=== PATIENT | female | born 1970 | race Caucasian/White ===

== ENCOUNTER 2018-06-24 19:34 | Inpatient (IN) | payer OTHER ==
[2018-06-24] MEDS ORDERED: ONDANSETRON 4 MG/2 ML VIAL ONE (20:00)
[2018-06-24] MEDS ORDERED: HYDROmorphONE/DILAUDID 1 MG/ML INJ ONE (20:00)
[2018-06-24] MEDS ORDERED: HYDROmorphONE/DILAUDID 1 MG/ML INJ IVP ONE ×3 (20:05→21:35)
[2018-06-24] MEDS ORDERED: ONDANSETRON 4 MG/2 ML VIAL IVP ONE (20:05)
[2018-06-24] MEDS ORDERED: NS 1,000 ML IV ONE ×2 (20:11→21:45)
--- NOTE | 2018-06-24 20:15 | EDPHY ---
H & P Stated Complaint: Epigastric pain-cramping Time Seen by Provider: 06/24/18 19:38 HPI/ROS: CHIEF COMPLAINT: Abdominal pain History by patient HISTORY OF PRESENT ILLNESS: 47-year-old woman with a history of gastric bypass 6 months ago presents complaining of acute onset of severe crampy upper epigastric pain after eating fondue dinner at a restaurant. Patient's symptoms began soon after finishing her meal and she vomited once spread outside the restaurant. She still feels nauseated and complains of ongoing severe pain. She has had a few similar episodes since her surgery but never this severe and never needing to seek medical attention as a abated on their own. She had several bowel movements today but had not had a bowel movement in 3 days prior to that although patient says this is typical for her. She has a history of pancreatitis which was related to hydrochlorothiazide this feels somewhat different, except for shooting pain that goes into her back. She has a history of hysterectomy but no other prior abdominal surgeries. She did not have any alcohol tonight. She denies regular alcohol use. She does not smoke. REVIEW OF SYSTEMS: As in HPI, and all other systems reviewed and are negative Source: Patient - Personal History LMP (Females 10-55): Hysterectomy Current Tetanus/Diphtheria Vaccine: Unsure Current Tetanus Diphtheria and Acellular Pertussis (TDAP): Unsure - Medical/Surgical History Hx Asthma: No Hx Chronic Respiratory Disease: No Hx Diabetes: No Hx Cardiac Disease: No Hx Renal Disease: No Hx Cirrhosis: No Hx Alcoholism: No Hx HIV/AIDS: No Hx Splenectomy or Spleen Trauma: No Other PMH: Gastric bypass 2018, hysterectomy, pancreatitis due to hydrochlorthiazide, HTN, cramps, - Social History Smoking Status: Never smoked - Physical Exam Exam: General Appearance: Alert, obese, uncomfortable hyperventilating. Eyes: Pupils equal and round, extraocular movements intact, no pallor or injection. Mouth: Mucous membranes moist. Pharynx clear Respiratory: Normal, effort, lungs are clear to auscultation. No wheezes, rales or rhonchi. Cardiovascular: Regular rate and rhythm. S1, S2, no murmurs, gallops or rubs appreciated Gastrointestinal: bowel sounds present, Abdomen is soft and nondistended, mildly diffusely tender in the epigastrium, no Benedict's, no McBurney's point tenderness, no masses Back: No CVA tenderness, no bony tenderness Neurological: Awake, alert and oriented x 3, no pronator drift, normal gait, no pronator drift Skin: Warm and dry, no rashes. Musculoskeletal: No deformities or tenderness. Extremities: full range of motion, no edema Psychiatric: Patient has normal affect, there is no agitation. Constitutional: Initial Vital Signs Temperature (C) 36.9 C 06/24/18 19:39 Heart Rate 94 06/24/18 19:39 Respiratory Rate 24 H 06/24/18 19:39 Blood Pressure 142/97 H 06/24/18 19:39 O2 Sat (%) 96 06/24/18 19:39 O2 Delivery Mode Room Air Allergies/Adverse Reactions: hydrochlorothiazide Allergy (Intermediate, Verified 06/24/18 19:39) Other-Enter Comments bacitracin Allergy (Mild, Verified 06/24/18 19:39) Rash Home Medications: Medication Instructions Recorded Alprazolam 06/24/18 Amlodipine Besylate 06/24/18 Calcium 06/24/18 Cyclobenzaprine 06/24/18 Estradiol 06/24/18 Magnesium 06/24/18 Montelukast Sodium 06/24/18 Sertraline HCl 06/24/18 traZODone 06/24/18 Medical Decision Making - Diagnostics Imaging Results: Imaging Impressions Abdomen CT 06/24/18 20:12 Impression: 1. Status post Helena-en-Y gastric bypass, with no abnormal distention of the duodenal or jejunal limbs. 2. Bilateral nonobstructive nephrolithiasis. 3. There is no ascites, focal intra-abdominal fluid collection, mechanical obstruction, or free air. There is a normal appearance of the appendix. 4. Status post hysterectomy and bilateral tubal ligations. Findings were discussed with Eunice Abraham MD at 21:13, on 06/24/2018. ED Course/Re-evaluation: 47-year-old woman with history of gastric bypass surgery, presents with acute onset of severe epigastric pain. Patient is given IV Zofran and Dilaudid with some improvement. Labs were notable for elevated LFTs and elevated white blood cell count and low platelets. Patient was given IV fluids. After the 1st dose of Dilaudid her blood pressure was noted to drop slightly. Given the patient's gastric bypass surgery I was concerned about complications related to this and her recent big meal and therefore a CT abdomen pelvis was obtained. And re- evaluation after CT scan the patient's blood pressure had improved and I suspect the dip was related to the Dilaudid she was given. Her pain had improved as well. CT scan showed nothing acute. Lipase came back elevated consistent with acute pancreatitis which also with patient's clinical picture. On re-evaluation the patient was complaining of recurrence of her pain was given another dose of Dilaudid. I discussed the case with Dr. Llamas, hospitalist veterans contact representative who agrees to admit the patient for further evaluation and treatment. - Data Points Laboratory Results: Laboratory Results 06/24/18 19:45 06/24/18 06/24/18 06/24/18 19:53 19:45 19:45 Plt Count REJ POC Sodium 143 mEq/L mEq/L (135-145) POC Potassium 3.9 mEq/L mEq/L (3.3-5.0) POC Chloride 106.0 mEq/L mEq/L (97-110) POC Total CO2 23 mEq/L mEq/L (22-31) POC BUN 20 mg/dL mg/dL (7-23) POC Creatinine 1.0 mg/dL mg/dL (0.6-1.0) POC Glucose 85 mg/dL mg/dL (70-100) POC Calcium 10.3 mg/dL mg/dL (8.5-10.4) POC Total Bilirubin 0.5 mg/dL mg/dL (0.1-1.4) POC AST 139 IU/L H IU/L (14-46) POC ALT 68 IU/L H IU/L (9-52) POC Alk Phosphatase 88 IU/L IU/L (38-126) POC Total Protein 7.4 g/dL g/dL (6.3-8.2) POC Albumin 3.7 g/dL g/dL (3.5-5.0) Lipase 1161 IU/L H IU/L (23-300) Medications Given: Discontinued Medications Hydromorphone HCl (Dilaudid) 0.5 mg IVP EDNOW ONE Stop: 06/24/18 20:06 Last Admin: 06/24/18 20:05 Dose: 0.5 mg Hydromorphone HCl (Dilaudid) 0.5 mg IVP EDNOW ONE Stop: 06/24/18 20:19 Last Admin: 06/24/18 20:18 Dose: 0.5 mg Sodium Chloride (Ns) 1,000 mls @ 0 mls/hr IV EDNOW ONE; Wide Open PRN Reason: Protocol Stop: 06/24/18 20:12 Last Admin: 06/24/18 20:19 Dose: 1,000 mls Ondansetron HCl (Zofran) 4 mg IVP EDNOW ONE Stop: 06/24/18 20:06 Last Admin: 06/24/18 20:06 Dose: 4 mg Point of Care Test Results: CBC CBC Collection Date 06/24/18 CBC Collection Time 19:45 WBC 9.55 RBC 4.36 HGB 13.9 HCT 39.7 PLT 88 Neut # 5.72 Neut 60 LYMPH # 3.05 LYMPH 31.9 MCV 91.1 Chemistry 06/24/18 19:53 POC Sodium 143 mEq/L mEq/L (135-145) POC Potassium 3.9 mEq/L mEq/L (3.3-5.0) POC Chloride 106.0 mEq/L mEq/L (97-110) POC Total CO2 23 mEq/L mEq/L (22-31) POC BUN 20 mg/dL mg/dL (7-23) POC Creatinine 1.0 mg/dL mg/dL (0.6-1.0) POC Glucose 85 mg/dL mg/dL (70-100) POC Calcium 10.3 mg/dL mg/dL (8.5-10.4) POC Total Bilirubin 0.5 mg/dL mg/dL (0.1-1.4) POC AST 139 IU/L H IU/L (14-46) POC ALT 68 IU/L H IU/L (9-52) POC Alk Phosphatase 88 IU/L IU/L (38-126) POC Total Protein 7.4 g/dL g/dL (6.3-8.2) POC Albumin 3.7 g/dL g/dL (3.5-5.0) Departure - Departure Disposition: [facility] Inpatient Acute Clinical Impression: Thrombocytopenia Acute pancreatitis Qualifiers: Pancreatitis type: unspecified pancreatitis type Acute pancreatitis complication: no infection or necrosis Qualified Code(s): K85.90 - Acute pancreatitis without necrosis or infection, unspecified Condition: Fair Referrals: PAULIE NELSON [Other] - As per Instructions
[2018-06-24] MEDS ORDERED: IOPAMIDOL (ISOVUE-300) 100 ML BTL ONE (20:25)
[2018-06-24] MEDS ORDERED: ONDANSETRON 4 MG/2 ML VIAL IVP PRN (21:56)
[2018-06-24] MEDS ORDERED: LORazepam 2 MG/ML INJ IVP PRN (23:26)
--- NOTE | 2018-06-25 07:45 | GHP ---
[f rep st] HISTORY AND PHYSICAL DATE OF ADMISSION: 06/24/2018 PRIMARY CARE PHYSICIAN: Caim Pineda. SOURCE: Patient provides history, appears reliable. EMR was reviewed. Case discussed with mikal pride hospitalist. CHIEF COMPLAINT: Abdominal epigastric pain, nausea, vomiting. HISTORY OF PRESENT ILLNESS: This is very pleasant 47-year-old female with past medical history signi ficant for obesity, status post gastric bypass in 2018; HTN; pancreatitis 3 years ago thought seconda ry to HCTZ; anxiety; insomnia; who presents to the emergency department at [facility] today with complaints of sudden-onset epigastric pain following dinner this evening. Patient reports the pain is sharp, st abbing, radiates to her back. She notes that she was at [facility] with her significant other maria rjohnathan pride to enjoy a meal. It was slightly fattier than her normal. She reports that she just had 12 bites of food before she began to feel ill. Additionally, patient also reports that she did have a cocktai l prior to eating. She does not drink on a daily basis. Shortly thereafter, she began to develop ep igastric pain with vomiting and persistent nausea. Patient denies any hematemesis. No diarrhea. Sh e denies any fevers or chills, although she states that she has been going through perimenopause and has been having intermittent flushing. Denies any cough, shortness of breath, rhinorrhea, or other i nfectious symptoms. Patient also reports that she recently was started on an estrogen patch not quit e 2 weeks ago and switches them out weekly. REVIEW OF SYSTEMS: Ten systems reviewed, negative except as noted above. ALLERGIES: HCTZ, bacitracin, ABDIAS inhibitors, fluticasone. HOME MEDICATIONS: Med conciliation is pending, but as available in EMR: Trazodone, sertraline, alka elukast, magnesium, estradiol, cyclobenzaprine, calcium, amlodipine, and alprazolam. PAST MEDICAL HISTORY: Significant for obesity, status post bypass; HTN; pancreatitis reported second vikash to HCTZ 3 years ago; anxiety; insomnia. PAST SURGICAL HISTORY: Significant for hysterectomy with single oophorectomy, gastric bypass. FAMILY HISTORY: Mother with CHF. SOCIAL HISTORY: Patient denies any tobacco or drug use. She does drink occasional alcohol, nothing on a daily basis, but maybe 1-2 drinks per week. CODE STATUS: Full. PHYSICAL EXAMINATION: VITAL SIGNS: Upon arrival to the ED: Blood pressure is 142/97, heart rate is 94, respiratory rate 24, O2 sat is 96% on room air, temperature of 36.9. Vitals available upon inte rview: Blood pressure is 122/86, heart rate is 92, respiratory rate 16, O2 sat 94% on room air, with a temperature of 36.9. GENERAL: Patient without any acute distress. She is lying quietly in bed. Her significant other arrives to bedside during interview. She does appear fatigued and uncomfortab le, lies quite still. HEAD: Normocephalic, atraumatic. EYES: Extraocular muscles grossly intact. Pupils equal, round, slightly decreased reactivity to light bilaterally, but symmetric. No scleral icterus or conjunctival injection. ENT: Mucous membranes appear slightly dry. No oropharyngeal akiko thema or exudates. Dentition intact. No nasal discharge. NECK: Supple. Trachea midline. CV: Re gular rate and rhythm. No murmurs, rubs, or gallops appreciated. Slightly distant heart sounds. RE SPIRATORY: Unlabored breathing. Lungs clear to auscultation bilaterally. Slightly diminished at th e bases with decreased inspiratory effort. No wheezes, rales, or rhonchi appreciated. Unlabored braeden athing. ABDOMEN: Obese abdomen. : No suprapubic tenderness to palpation. No Long catheter in place. MUSCULOSKELETAL: Strength grossly normal. Patient does move all extremities. NEURO: Gross ly nonfocal. No facial drooping. PSYCH: Affect is appropriate. Patient is pleasant and cooperativ e, although she does not feel well. She smiles intermittently. She is in fairly good spirits, but n otes that she is slightly disappointed that she has had recurrence of her pancreatitis. Thought proc ess, content, and questions are otherwise appropriate. LABORATORY STUDIES: Platelet count 205. Point of care from the ED: Sodium is 143, potassium 3.9, c hloride is 106, CO2 is 23, BUN is 20, chloride 106, CO2 is 23, creatinine 1.0, calcium is 10.3, total protein is 9.4, albumin is 3.7, ALT 68, AST is 139, alk phos is 88, total bili 0.5. Lipase is 1161. CT abdomen and pelvis report showing status post Helena-en-Y gastric bypass. No abnormal distention, d uodenojejunal limbs. Bilateral nonobstructive nephrolithiasis. No ascites, focal intraabdominal flu id collection, mechanical obstruction, or free air. Normal-appearing appendix. Status post hysterec laverne, bilateral tubal ligations. Pancreas appears normal. No calcified gallstones, wall thickening, or pericholecystic fluid. Biliary ducts note some periportal edema from IV hydration. Common bile duct is normal in size, tapers in the ampulla. Pancreatic duct does not appear dilated. ASSESSMENT AND PLAN: Pleasant 47-year-old female with history of obesity, status post bypass; hypert ension; pancreatitis 3 years ago reported due to hydrochlorothiazide; anxiety; insomnia; who presents to the emergency department with epigastric abdominal pain. 1. Pancreatitis. Etiology is not clear. Patient without any gallstones; however, she did report rosales ving alcohol this evening, also increased fatty diet load with history of gastric bypass. Patient al so reports that she did start estrogen therapy with a patch, which is changed weekly, which is new. Review shows that there is less than a 3% chance that it could cause pancreatitis, so we will need to discuss this further with the patient in the morning to see if she would be willing to forego her es trogen replacement. We will also check a triglyceride. She has been made nothing by mouth except fo r occasional ice chips. We will trend her lipase. Continue with intravenous fluids and pain control . Once her symptoms improve, we will plan to try to advance diet slowly. I did discuss with the pat ient negative CT findings for gallstones or evidence of obstruction. We will also encourage her to d iscontinue use of alcohol to see if this would minimize any recurrence and also would follow up with her regarding the estrogen supplementation. 2. Abdominal pain. Patient received dose of Ativan since arrival to the floor, which she reports rosales s helped significantly. This will be available as needed, as well as some low-dose Dilaudid, until p atient can tolerate oral intake. 3. Transaminitis. Unclear at this time if it is related to patient's alcohol versus fatty liver. W e will trend liver function tests. Patient does have a 1:2 ratio in her ALT/AST, but again this is j ust above high normal values. We will trend in the morning. 4. Chronic medical issues. 5. Benign essential hypertension. Blood pressures at this time are well controlled. Patient normal ly is taking amlodipine. Resume once medication reconciliation is available. 6. Anxiety, depression. Continue patient's trazodone, sertraline, and alprazolam when medication re conciliation is completed and diet is advanced. 7. Fluid, electrolyte, nutrition. Intravenous fluids overnight. Patient will be nothing by mouth u ntil reassessed in the morning, and if her pain is resolved and her lipase continues to downtrend, co nsider advancing diet slowly as per day provider. 8. Prophylaxis. Sequential compression devices, Lovenox. 9. Code status. Full. 10. Disposition. Patient admitted to inpatient status on the [facility] floor for continued management of her pancreatitis. /[id number]/MODL
[2018-06-25] MEDS: HYDROmorphONE/DILAUDID 1 MG/ML INJ IVP PRN ×3 (08:50→16:03)
[2018-06-25] MEDS: ENOXAPARIN 40 MG/0.4 ML SYR SC SCH (08:50)
[2018-06-25] MEDS: NS 1,000 ML IV SCH ×3 (08:50→20:44)
[2018-06-25] MEDS ORDERED: LOPERAMIDE HCL 2 MG CAP PO PRN (09:15)
[2018-06-25] MEDS ORDERED: ALPRAZolam 0.25 MG TAB PO PRN (09:15)
--- NOTE | 2018-06-25 09:34 | PDMN ---
Medical Necessity Medical necessity: MCG M250 pancreatitis :-2 days: 47yo F presents with severe abd pain N/V, req pt to be NPO Lipase 1161, anticipate > 2 MN ongoing med nec care- further monitoring, eval and tx
[2018-06-25] MEDS: SERTRALINE HCL 100 MG TAB PO SCH (09:41)
--- NOTE | 2018-06-25 12:18 | ASMTCMCOM ---
CM Note CM Note Notes: Pt has been admitted with pancreatitis. She has a hx of anxiety and a prior episode of pancreatitis. Anticipate d/c with no CM needs however will continue to follow for any change in needs. D/C plan: anticipate home independent Date Signed: 06/25/2018 12:18 PM Electronically Signed By:SELVIN Murry
[2018-06-25] MEDS: MONTELUKAST SODIUM 10 MG TAB PO SCH (20:42)
[2018-06-25] MEDS: MELATONIN 3 MG TAB PO SCH (20:42)
[2018-06-25] MEDS: traZODone 50 MG TAB PO SCH (20:43)
[2018-06-25] MEDS: ACETAMINOPHEN 325 MG TAB PO PRN (20:44)
--- NOTE | 2018-06-25 23:52 | HOSPPROG ---
Hospitalist Progress Note Assessment/Plan: 1. Acute pancreatitis with transaminitis, unclear cause (maybe from new estrogen med) -lipase lower today and pain improved -NPO with IVF, but she is OK with trial clears 2. HTN -home meds 3. Obesity, s/p Helena en Y bypass surgery last yr -has lost > 100 lbs so far! 4. depression/anxiety -home meds DISPO- 1-2 more mdnts depending upon pain/PO intake PCP Dr Angeli Pineda in [place] D[place] prophy-lovenox FULL code Subjective: Says pain better. Had 'uncontrollable' diarrhea, better with immodium now. No V/CP/SOB. Objective: Vital Signs Temp Pulse Resp BP Pulse Ox 98.3 F 56 L 16 99/61 L 94 06/25/18 23:15 06/25/18 23:15 06/25/18 23:15 06/25/18 23:15 06/25/18 23:15 Laboratory Results 06/25/18 04:28 06/24/18 06/25/18 06/26/18 11:59 11:59 11:59 Intake Total 1999 2923 Balance 1999 2923 - Time Spent With Patient Time Spent with Patient: greater than 35 minutes (total floor time) Time Spent with Patient: Greater than 35 minutes spent on this patients care, greater than 50% of time spent counseling, educating, and coordinating care regarding the above mentioned plan. - Physical Exam Constitutional: no apparent distress, obese Eyes: anicteric sclera Ears, Nose, Mouth, Throat: moist mucous membranes, hearing normal Cardiovascular: regular rate and rhythym, No edema Respiratory: no respiratory distress, no rales or rhonchi, clear to auscultation Gastrointestinal: normoactive bowel sounds, tenderness (mild throughout), No guarding, No rebound, No distension Skin: warm, No rash Neurologic: other (grossly non focal) Psychiatric: interacting appropriately, not anxious, not encephalopathic ICD10 Worksheet Patient Problems: Problems Problem Status Onset Acute pancreatitis Acute Thrombocytopenia Acute
[2018-06-26] MEDS: ACETAMINOPHEN 325 MG TAB PO PRN ×2 (04:51→16:42)
[2018-06-26] MEDS: NS 1,000 ML IV SCH (04:52)
[2018-06-26 05:47] LABS: PLATELET COUNT 136 10^3/uL (150-400)
[2018-06-26] MEDS ORDERED: PROTOCOL POTASSIUM 1 DOSE MISC PRN (07:58)
[2018-06-26] MEDS ORDERED: PROTOCOL MAGNESIUM 1 DOSE IV PRN (07:58)
[2018-06-26] MEDS ORDERED: POTASSIUM CL 10 MEQ TAB PO ONE ×2 (08:36→19:43)
[2018-06-26] MEDS: oxyCODONE IR 5 MG TAB PO PRN (09:12)
[2018-06-26] MEDS: SERTRALINE HCL 100 MG TAB PO SCH (09:13)
[2018-06-26] MEDS: ENOXAPARIN 40 MG/0.4 ML SYR SC SCH (09:13)
[2018-06-26] MEDS ORDERED: MAGNESIUM SULF 1 GM/DEXTROSE 100 ML IV ONE (09:19)
--- NOTE | 2018-06-26 15:31 | HOSPPROG ---
Hospitalist Progress Note Assessment/Plan: 47 yo F w abd pain in setting of post prandial vomiting ?pancreatitis: maybe elevated lipase could be from vomiting tolerating clears w/out increased pain, not hyperdynamic continue clears ?GB pathology: + pappas's sign, h/o gastric bypass and pain post fatty meal HIDA scan HTN home meds Obesity, s/p Hel[place] en Y bypass surgery last yr has lost > 100 lbs so far! depression/anxiety home meds DISPO- 1-2 more mdnts depending upon pain/PO intake PCP Dr Angeli Pineda in [place] prophy-lovenox FULL code Subjective: feeling slightly better. has RUQ pain Objective: Vital Signs Temp Pulse Resp BP Pulse Ox 36.7 C 69 20 109/72 93 06/26/18 11:15 06/26/18 11:15 06/26/18 11:15 06/26/18 11:15 06/26/18 11:15 Laboratory Results 06/26/18 05:10 06/26/18 05:10 06/25/18 06/26/18 06/27/18 05:59 05:59 05:59 Intake Total 1999 2923 Balance 1999 2923 - Physical Exam Constitutional: no apparent distress, appears nourished Eyes: PERRL, anicteric sclera Ears, Nose, Mouth, Throat: moist mucous membranes, hearing normal Cardiovascular: regular rate and rhythym, no murmur, rub, or gallop Respiratory: no respiratory distress, no rales or rhonchi Gastrointestinal: normoactive bowel sounds, soft, non-tender abdomen, pappas's sign Genitourinary: No rasheed in urethra Skin: warm, normal color Musculoskeletal: full muscle strength Neurologic: AAOx3 Psychiatric: interacting appropriately ICD10 Worksheet Patient Problems: Problems Problem Status Onset Acute pancreatitis Acute Thrombocytopenia Acute
[2018-06-26] MEDS: MELATONIN 3 MG TAB PO SCH (20:26)
[2018-06-26] MEDS: traZODone 50 MG TAB PO SCH (20:26)
[2018-06-26] MEDS: MONTELUKAST SODIUM 10 MG TAB PO SCH (20:26)
[2018-06-27] MEDS: ACETAMINOPHEN 325 MG TAB PO PRN (01:49)
[2018-06-27] MEDS: NS 1,000 ML IV SCH (08:22)
[2018-06-27] MEDS ORDERED: MAGNESIUM SULF 1 GM/DEXTROSE 100 ML IV ONE (08:36)
[2018-06-27] MEDS ORDERED: POTASSIUM CL 10 MEQ TAB PO ONE (08:39)
[2018-06-27] MEDS ORDERED: SINCALIDE 5 MCG VIAL IV ONE (09:11)
[2018-06-27] MEDS: oxyCODONE IR 5 MG TAB PO PRN (11:27)
[2018-06-27] MEDS: SERTRALINE HCL 100 MG TAB PO SCH (11:28)
--- NOTE | 2018-06-27 12:40 | HOSPPROG ---
Hospitalist Progress Note Assessment/Plan: 47 yo F w abd pain in setting of post prandial vomiting ?pancreatitis: maybe elevated lipase could be from vomiting tolerating clears w/out increased pain, not hyperdynamic continue clears ?GB pathology: + pappas's sign, h/o gastric bypass and pain post fatty meal HIDA scan w delayed filling surgical eval HTN home meds Obesity, s/p [place] en Y bypass surgery last yr has lost > 100 lbs so far! depression/anxiety home meds DISPO- 1-2 more mdnts depending upon pain/PO intake PCP Dr Angeli Pineda in [place] D[place] prophy-lovenox FULL code Subjective: case d/w dr maurice. HIDA s/o chronic cholecystitis Objective: Vital Signs Temp Pulse Resp BP Pulse Ox 36.5 C 60 16 128/92 H 95 06/27/18 11:29 06/27/18 11:29 06/27/18 11:29 06/27/18 11:29 06/27/18 11:29 Laboratory Results 06/26/18 05:10 06/27/18 04:42 06/26/18 06/27/18 06/28/18 05:59 05:59 05:59 Intake Total 2923 Balance 2923 - Physical Exam Constitutional: no apparent distress, appears nourished Eyes: PERRL, anicteric sclera Ears, Nose, Mouth, Throat: moist mucous membranes, hearing normal Cardiovascular: regular rate and rhythym, no murmur, rub, or gallop Respiratory: no respiratory distress, no rales or rhonchi Gastrointestinal: normoactive bowel sounds, soft, non-tender abdomen, pappas's sign Genitourinary: no bladder fullness, No rasheed in urethra Skin: warm, normal color Musculoskeletal: full muscle strength Neurologic: AAOx3 ICD10 Worksheet Patient Problems: Problems Problem Status Onset Acute pancreatitis Acute Thrombocytopenia Acute
--- NOTE | 2018-06-27 13:54 | PDGENHP ---
History and Physical - Chief Complaint RUQ pain - History of Present Illness 47yo F admitted to medicine for a few days with vague epigastric RUQ pain. Per patients report, has had intermittent RUQ/epigastric pain a handful of times, was admitted in the past only to be discharged after a US showed the GB was "normal" endorses persistent RUQ pain without radiation. Unclear if related to food but does endorse that this episode got acutely worse after eating [place]. No fevers or chills. History Information - Allergies/Home Medication List Allergies/Adverse Reactions: ABDIAS Inhibitors Allergy (Intermediate, Verified 06/25/18 08:03) Other-Enter Comments bupropion [From Wellbutrin] Allergy (Intermediate, Verified 06/25/18 08:03) Itching hydrochlorothiazide Allergy (Intermediate, Verified 06/24/18 19:39) Other-Enter Comments bacitracin Allergy (Mild, Verified 06/24/18 19:39) Rash fluticasone [From Flonase] Allergy (Verified 06/24/18 23:22) Home Medications: ALPRAZolam [Xanax 0.25 MG (*)] 0.25 - 0.5 mg PO BID PRN 06/24/18 [Last Taken Unknown] Calcium Citrate/Vitamin D3 [Calcium Citrate - Vit D3 Tab] 1 each PO DAILY [Last Taken Unknown] Cyclobenzaprine [Flexeril 10 MG (*)] 5 - 10 mg PO TID PRN 06/24/18 [Last Taken Unknown] Estradiol [Climara] 0.025 mg TD SA 06/24/18 [Last Taken 06/24/18] Magnesium Oxide 250 mg PO DAILY 06/24/18 [Last Taken 06/23/18] Montelukast Sodium [Singulair 10 mg (*)] 10 mg PO HS 06/24/18 [Last Taken ] Sertraline HCl [Zoloft 100mg (*)] 100 mg PO DAILY 06/24/18 [Last Taken 06/23/18] amLODIPine BESYLATE [Amlodipine Besylate] 10 mg PO DAILY 06/24/18 [Last Taken ] traZODone [traZODONE 50MG (*)] 50 mg PO HS 06/24/18 [Last Taken 06/23/18] Herbals/Supplements -Info Only 1 each PO DAILY 06/25/18 [Last Taken Unknown] I have personally reviewed and updated: medical history, surgical history - Surgical History Additional surgical history: gastric bypass, hysterectomy - Social History Smoking Status: Never smoked Review of Systems Review of Systems: ROS: 10pt was reviewed & negative except for what was stated in HPI & below Physical Exam Physical Exam: Temp Pulse Resp BP Pulse Ox 36.5 C 60 16 128/92 H 95 06/27/18 11:29 06/27/18 11:29 06/27/18 11:29 06/27/18 11:29 06/27/18 11:29 O2 (L/minute) 1 Constitutional: no apparent distress, appears nourished, not in pain Eyes: PERRL, anicteric sclera, EOMI Ears, Nose, Mouth, Throat: moist mucous membranes, hearing normal, ears appear normal, no oral mucosal ulcers Cardiovascular: regular rate and rhythym, no murmur, rub, or gallop, No edema Respiratory: no respiratory distress, no rales or rhonchi, clear to auscultation Gastrointestinal: normoactive bowel sounds, no palpable masses, other (TTP in RUQ, positive [place] ) Genitourinary: no bladder fullness, no bladder tenderness Skin: warm, normal color, no rashes or abrasions, no fluctuance, no induration, No mottled Musculoskeletal: full muscle strength, no muscle tenderness, normal joint ROM, no joint effusions Psychiatric: interacting appropriately, not anxious, not encephalopathic, thought process linear Lymph, Heme, Immunologic: no cervical LAD, no supraclavicular LAD Lab Data & Imaging Review 06/26/18 05:10 06/27/18 04:42 WBC 5.61 10^3/uL (3.80-9.50) 06/26/18 05:10 RBC 4.12 10^6/uL (4.18-5.33) L 06/26/18 05:10 Hgb 12.9 g/dL (12.6-16.3) 06/26/18 05:10 Hct 38.7 % (38.0-47.0) 06/26/18 05:10 MCV 93.9 fL (81.5-99.8) 06/26/18 05:10 MCH 31.3 pg (27.9-34.1) 06/26/18 05:10 MCHC 33.3 g/dL (32.4-36.7) 06/26/18 05:10 RDW 12.6 % (11.5-15.2) 06/26/18 05:10 Plt Count 136 10^3/uL (150-400) L 06/26/18 05:10 MPV 12.5 fL (8.7-11.7) H 06/26/18 05:10 Neut % (Auto) 44.9 % (39.3-74.2) 06/26/18 05:10 Lymph % (Auto) 42.1 % (15.0-45.0) 06/26/18 05:10 Stone % (Auto) 9.1 % (4.5-13.0) 06/26/18 05:10 Eos % (Auto) 3.2 % (0.6-7.6) 06/26/18 05:10 Baso % (Auto) 0.5 % (0.3-1.7) 06/26/18 05:10 Nucleat RBC Rel Count 0.0 % (0.0-0.2) 06/26/18 05:10 Absolute Neuts (auto) 2.52 10^3/uL (1.70-6.50) 06/26/18 05:10 Absolute Lymphs (auto) 2.36 10^3/uL (1.00-3.00) 06/26/18 05:10 Absolute Monos (auto) 0.51 10^3/uL (0.30-0.80) 06/26/18 05:10 Absolute Eos (auto) 0.18 10^3/uL (0.03-0.40) 06/26/18 05:10 Absolute Basos (auto) 0.03 10^3/uL (0.02-0.10) 06/26/18 05:10 Absolute Nucleated RBC 0.00 10^3/uL (0-0.01) 06/26/18 05:10 Immature Gran % 0.2 % (0.0-1.1) 06/26/18 05:10 Immature Gran # 0.01 10^3/uL (0.00-0.10) 06/26/18 05:10 POC Sodium 143 mEq/L (135-145) 06/24/18 19:53 Sodium 139 mEq/L (135-145) 06/26/18 05:10 POC Potassium 3.9 mEq/L (3.3-5.0) 06/24/18 19:53 Potassium 3.3 mEq/L (3.5-5.2) L 06/27/18 04:42 POC Chloride 106.0 mEq/L (97-110) 06/24/18 19:53 Chloride 111 mEq/L (97-110) H 06/26/18 05:10 Carbon Dioxide 22 mEq/l (22-31) 06/26/18 05:10 POC Total CO2 23 mEq/L (22-31) 06/24/18 19:53 Anion Gap 6 mEq/L (6-14) 06/26/18 05:10 POC BUN 20 mg/dL (7-23) 06/24/18 19:53 BUN 6 mg/dL (7-23) L 06/26/18 05:10 Creatinine 0.5 mg/dL (0.6-1.0) L 06/26/18 05:10 POC Creatinine 1.0 mg/dL (0.6-1.0) 06/24/18 19:53 Estimated GFR > 60 06/26/18 05:10 Glucose 80 mg/dL (70-100) 06/26/18 05:10 POC Glucose 85 mg/dL (70-100) 06/24/18 19:53 POC Calcium 10.3 mg/dL (8.5-10.4) 06/24/18 19:53 Calcium 8.4 mg/dL (8.5-10.4) L 06/26/18 05:10 Magnesium 1.5 mg/dL (1.6-2.3) L 06/27/18 04:42 POC Total Bilirubin 0.5 mg/dL (0.1-1.4) 06/24/18 19:53 Total Bilirubin 0.5 mg/dL (0.1-1.4) 06/26/18 05:10 Conjugated Bilirubin 0.3 mg/dL (0.0-0.5) 06/25/18 04:28 Unconjugated Bilirubin 0.1 mg/dL (0.0-1.1) 06/25/18 04:28 POC AST 139 IU/L (14-46) H 06/24/18 19:53 AST 51 IU/L (14-46) H 06/26/18 05:10 POC ALT 68 IU/L (9-52) H 06/24/18 19:53 ALT 74 IU/L (9-52) H 06/26/18 05:10 POC Alk Phosphatase 88 IU/L (38-126) 06/24/18 19:53 Alkaline Phosphatase 108 IU/L (38-126) 06/26/18 05:10 POC Total Protein 7.4 g/dL (6.3-8.2) 06/24/18 19:53 Total Protein 5.4 g/dL (6.3-8.2) L 06/26/18 05:10 POC Albumin 3.7 g/dL (3.5-5.0) 06/24/18 19:53 Albumin 2.9 g/dL (3.5-5.0) L 06/26/18 05:10 Triglycerides 96 mg/dL (35-135) 06/25/18 04:28 Lipase 611 IU/L (23-300) H 06/25/18 04:28 Visualized and Interpreted imaging results: Yes Interpretation: CT: Normal GB, normal duct. HIDA: delayed filling, no ductal obstruction Assessment & Plan Assessment: Acute pancreatitis (Acute) Thrombocytopenia (Acute) Plan: story is c/w chronic cholecystitis - discussed treatment options including inpatient madi vs outpatient madi vs non-op. Patient would like relief and wants to proceed. Discussed the surgery, the RBA. Plan for Lap madi today.
[2018-06-27] MEDS ORDERED: LR 1,000 ML IV ONE (16:03)
[2018-06-27] MEDS ORDERED: BUPIVACAINE/EPI 0.5% 30 ML SDV ONE (17:47)
[2018-06-27] MEDS ORDERED: ceFAZolin 2 GM/DEXTROSE 100 ML IV ONE (17:49)
[2018-06-27] MEDS ORDERED: MIDAZOLAM 2 MG/2 ML VIAL IVP ONE (18:33)
--- NOTE | 2018-06-27 18:38 | PDANEPAE ---
ANE History of Present Illness Laparoscopic cholecystectomy ANE Past Medical History - Cardiovascular History Hx Hypertension: Yes Hx Arrhythmias: No Hx Chest Pain: No Hx Coronary Artery / Peripheral Vascular Disease: No Hx CHF / Valvular Disease: No Hx Palpitations: No - Pulmonary History Hx COPD: No Hx Asthma/Reactive Airway Disease: No Hx Recent Upper Respiratory Infection: No Hx Oxygen in Use at Home: No Hx Sleep Apnea: Yes Sleep Apnea Screening Result - Last Documented: Positive - Endocrine History Hx Diabetes: No Hypothyroid: No Hyperthyroid: No Obesity: mild - Chronic Pain History Chronic Pain: No ANE Review of Systems Review of Systems: - Exercise capacity METS (RN): 4 METS ANE Patient History - Allergies Allergies/Adverse Reactions: ABDIAS Inhibitors Allergy (Intermediate, Verified 06/25/18 08:03) Other-Enter Comments bupropion [From Wellbutrin] Allergy (Intermediate, Verified 06/25/18 08:03) Itching hydrochlorothiazide Allergy (Intermediate, Verified 06/24/18 19:39) Other-Enter Comments bacitracin Allergy (Mild, Verified 06/24/18 19:39) Rash fluticasone [From Flonase] Allergy (Verified 06/24/18 23:22) - Home Medications Home Medications: ALPRAZolam [Xanax 0.25 MG (*)] 0.25 - 0.5 mg PO BID PRN 06/24/18 [Last Taken Unknown] Calcium Citrate/Vitamin D3 [Calcium Citrate - Vit D3 Tab] 1 each PO DAILY [Last Taken Unknown] Cyclobenzaprine [Flexeril 10 MG (*)] 5 - 10 mg PO TID PRN 06/24/18 [Last Taken Unknown] Estradiol [Climara] 0.025 mg TD SA 06/24/18 [Last Taken 06/24/18] Magnesium Oxide 250 mg PO DAILY 06/24/18 [Last Taken 06/23/18] Montelukast Sodium [Singulair 10 mg (*)] 10 mg PO HS 06/24/18 [Last Taken ] Sertraline HCl [Zoloft 100mg (*)] 100 mg PO DAILY 06/24/18 [Last Taken 06/23/18] amLODIPine BESYLATE [Amlodipine Besylate] 10 mg PO DAILY 06/24/18 [Last Taken ] traZODone [traZODONE 50MG (*)] 50 mg PO HS 06/24/18 [Last Taken 06/23/18] Herbals/Supplements -Info Only 1 each PO DAILY 06/25/18 [Last Taken Unknown] - NPO status NPO Status: no food or drink >8 hours NPO Since - Liquids (Date): 06/26/18 NPO Since - Liquids (Time): 22:00 NPO Since - Solids (Date): 06/26/18 NPO Since - Solids (Time): 22:00 - Anes Hx Anes Hx: awareness under anesthesia - Smoking Hx Smoking Status: Never smoked - Alcohol Use Alcohol Use: Rarely - Family Anes Hx Family Anes Hx: none ANE Labs/Vital Signs - Labs Result Diagrams: 06/26/18 05:10 06/27/18 04:42 - Vital Signs Blood Pressure: 108/77 Heart Rate: 67 Respiratory Rate: 16 O2 Sat (%): 95 Height: 180.34 cm Weight: 99.79 kg ANE Physical Exam - Airway Neck exam: FROM Mallampati Score: Class 1 Mouth exam: normal dental/mouth exam - Pulmonary Pulmonary: no respiratory distress, no rales or rhonchi - Cardiovascular Cardiovascular: regular rate and rhythym, no murmur, rub, or gallop - ASA Status ASA Status: II ANE Anesthesia Plan Anesthesia Plan: general endotracheal anesthesia Specialized Airway: video laryngoscope
[2018-06-27] MEDS ORDERED: MIDAZOLAM 2 MG/2 ML VIAL ONE (18:44)
[2018-06-27] MEDS ORDERED: fentaNYL 250 MCG/5 ML INJ ONE (18:52)
[2018-06-27] MEDS ORDERED: PROPOFOL/EMULSION 500 MG/50 ML BOTTLE IV ONE ×2 (18:52→19:12)
[2018-06-27] MEDS ORDERED: ROCURONIUM 100 MG/10 ML VIAL ONE (19:15)
[2018-06-27] MEDS ORDERED: ONDANSETRON 4 MG/2 ML VIAL ONE ×2 (19:15→20:11)
[2018-06-27] MEDS ORDERED: DEXAMETHASONE 4 MG/ML VIAL ONE (19:15)
[2018-06-27] MEDS ORDERED: GLYCOPYRROLATE 0.2 MG/1 ML VIAL ONE (19:16)
[2018-06-27] MEDS ORDERED: ONDANSETRON 4 MG/2 ML VIAL IVP PRN (19:39)
[2018-06-27] MEDS ORDERED: fentaNYL 100 MCG/2 ML INJ IVP PRN (19:39)
[2018-06-27] MEDS ORDERED: PROMETHAZINE HCL 25 MG/ML INJ IVP PRN (19:39)
[2018-06-27] MEDS ORDERED: LR 500 ML IV PRN (19:39)
[2018-06-27] MEDS ORDERED: ALBUTEROL 3 ML DEYVIAL IH PRN (19:39)
[2018-06-27] MEDS ORDERED: HYDROCODONE/APAP 5/325 TAB PO PRN (19:39)
[2018-06-27] MEDS ORDERED: NALOXONE HCL 0.4 MG/ML INJ IVP PRN (19:39)
[2018-06-27] MEDS ORDERED: SUGAMMADEX SODIUM 200 MG/2 ML VIAL IVP ONE (19:48)
--- NOTE | 2018-06-27 19:57 | POSTOPPROG ---
Post Op Note Date of Operation: 06/27/18 Surgeon: Todd Knight Anesthesiologist: Mark Anesthesia: GET(General Endotracheal) Pre-op Diagnosis: cholecystitis Post-op Diagnosis: chronic cholecystitis Procedure: Lap madi Findings: Critical view, no stones appreciated in GB Inf/Abcess present in the surg proc area at time of surgery?: No EBL: Minimal Total fluids administered: 500cc NS washout Specimen(s): GB
[2018-06-27] MEDS ORDERED: HYDROmorphONE/DILAUDID 2 MG/ML INJ ONE (20:14)
[2018-06-27] MEDS: HYDROmorphONE/DILAUDID 2 MG/ML INJ IVP PRN ×3 (20:15→20:39)
[2018-06-27] MEDS ORDERED: PROMETHAZINE HCL 25 MG/ML INJ ONE (20:17)
--- NOTE | 2018-06-27 20:39 | GOP ---
[f rep st] OPERATIVE REPORT DATE OF OPERATION: 06/27/2018 SURGEON: Todd Knight MD INTERNET RETAILER: None. ANESTHESIA: General endotracheal. ANESTHESIOLOGIST: Afshan Flores MD PREOPERATIVE DIAGNOSIS: Cholecystitis. POSTOPERATIVE DIAGNOSIS: Chronic cholecystitis. PROCEDURE PERFORMED: Laparoscopic cholecystectomy. FINDINGS: Edematous gallbladder wall consistent with chronic cholecystitis. Critical view obtained. Back table examination of gallbladder showed no stones within the bag. SPECIMENS: Gallbladder. ESTIMATED BLOOD LOSS: 10 cc. DESCRIPTION OF PROCEDURE: The patient was greeted in the preoperative suite. Once again, risks, parvez efits, and alternatives were discussed. Consent was signed. She was then brought back to the operat charley suite, placed on the OR table in the supine position. After all anesthesia machines including SC Ds were on and functioning, [employer] time-out was performed. After successful induc tion of general anesthesia, the patient's abdomen was prepped and draped in typical sterile fashion. I commenced the procedure by making an infraumbilical cutdown, through which a Veress needle was pas sed. I achieved pneumoperitoneum to 15 mmHg CO2, which was well tolerated by the patient. [facility], I then inserted a 12 mm Visiport. Once successfully in the abdomen, I inserted 3 additional 5 m m trocars, 1 in the subxiphoid, 2 in the right upper quadrant, all under direct visualization. I beg an the procedure by successfully retracting the gallbladder over the edge of the liver. I dissected at the infundibulum and identified 2 and only 2 structures leading toward the gallbladder. I first c lipped the duct and then the artery and divided them sharply. I then took the gallbladder off the li eric bed using electrocautery. It was placed in an EndoCatch bag and removed. Back table examination showed that there were no stones identified within it. I irrigated the right upper quadrant with no rmal saline noting clear effluent in the suction canister. My clips were hemostatic and intact. I t hen evacuated pneumoperitoneum. Prior to doing this, I closed the infraumbilical site using the Xenia Martin fascial closure device with a 0 Vicryl stitch noting excellent fascial closure. The skin was then closed with Monocryl. Dermabond was placed. The patient was then extubated in the operati ve suite and taken to PACU in satisfactory condition. DRAINS: None. COUNTS: All counts were reported as correct x2. /[id number]/MODL
[2018-06-27] MEDS: POTASSIUM Cl (KCl) 100 ML IV SCH ×2 (22:27→23:44)
[2018-06-27] MEDS: traZODone 50 MG TAB PO SCH (23:12)
[2018-06-27] MEDS: MONTELUKAST SODIUM 10 MG TAB PO SCH (23:12)
[2018-06-27] MEDS: MELATONIN 3 MG TAB PO SCH (23:12)
[2018-06-28] MEDS: POTASSIUM Cl (KCl) 100 ML IV SCH (01:43)
[2018-06-28] MEDS: oxyCODONE IR 5 MG TAB PO PRN ×2 (04:13→08:13)
--- NOTE | 2018-06-28 07:15 | SOAPPROG ---
SOAP Progress Note Assessment/Plan: Assessment: 47yo F POD$1 s/p lap madi - looks good - abdomen is soft, incisions look good - advance diet, see how her pain evolves - ok for home today - FU with me in 2 weeks, restrictions discused Plan: 06/28/18 07:14 Subjective: feels better, wants to eat Objective: Vital Signs Temp Pulse Resp BP Pulse Ox 36.4 C 63 16 100/57 L 92 06/28/18 04:05 06/28/18 04:05 06/28/18 04:05 06/28/18 04:05 06/28/18 04:05 Laboratory Results 06/26/18 05:10 06/28/18 04:37 06/27/18 06/28/18 06/29/18 05:59 05:59 05:59 Intake Total 2150 Output Total 5 Balance 2145 ICD10 Worksheet Patient Problems: Problems Problem Status Onset Acute pancreatitis Acute Thrombocytopenia Acute
[2018-06-28] MEDS ORDERED: MAGNESIUM SULF 1 GM/DEXTROSE 100 ML IV ONE (07:53)
[2018-06-28] MEDS: SERTRALINE HCL 100 MG TAB PO SCH (08:09)
[2018-06-28] MEDS: ACETAMINOPHEN 325 MG TAB PO PRN (08:09)
[2018-06-28 08:50] VITALS: BP 96/58
--- NOTE | 2018-06-28 10:05 | HOSPPROG ---
Hospitalist Progress Note Assessment/Plan: 47 yo F w abd pain in setting of post prandial vomiting ?pancreatitis: maybe elevated lipase could be from vomiting tolerating clears w/out increased pain, not hyperdynamic continue clears ?GB pathology: deniz barraza w chronic cholecystitis I suspect this is the source of her pain rather than pancreatitis HTN home meds Obesity, s/p [place] bypass surgery last yr has lost > 100 lbs so far! depression/anxiety home meds home today > 30 minutes Subjective: case d/w dr maurice. deniz barraza yesterday Objective: Vital Signs Temp Pulse Resp BP Pulse Ox 36.6 C 67 12 96/58 L 93 06/28/18 07:26 06/28/18 08:49 06/28/18 07:26 06/28/18 08:49 06/28/18 08:49 Laboratory Results 06/26/18 05:10 06/28/18 04:37 06/27/18 06/28/18 06/29/18 05:59 05:59 05:59 Intake Total 2150 Output Total 5 Balance 2144 - Physical Exam Constitutional: no apparent distress, appears nourished Eyes: PERRL, anicteric sclera Ears, Nose, Mouth, Throat: moist mucous membranes, hearing normal Cardiovascular: regular rate and rhythym, no murmur, rub, or gallop Respiratory: no respiratory distress, no rales or rhonchi Gastrointestinal: normoactive bowel sounds, No rebound Genitourinary: no bladder fullness, No rasheed in urethra Skin: warm, normal color Musculoskeletal: full muscle strength ICD10 Worksheet Patient Problems: Problems Problem Status Onset Acute pancreatitis Acute Thrombocytopenia Acute
--- NOTE | 2018-06-28 10:30 | GDS ---
[f rep st] DISCHARGE SUMMARY DISCHARGE DIAGNOSES: 1. Chronic cholecystitis with right upper quadrant pain. 2. Possible, but doubtful, pancreatitis. 3. Status post cholecystectomy. 4. History of gastric bypass. Please see admission history and physical by Dr. Shanon López. The patient presented with abdominal pain that happened after eating a fatty meal. She had an elevated lipase. She also had modestly deborah vated LFTs. CT showed intact gallbladder with no stone and normal ducts. On physical exam, the rob ent had a Benedict sign. HIDA scan showed nonfilling gallbladder and laparoscopic cholecystectomy show ed thickened gallbladder wall consistent with chronic cholecystitis. On postop day 1, she was ambula ting on room air, tolerating a diet and feeling well. She is discharged home. She is given a limite d prescription for pain pills. Greater than 30 minutes spent on this discharge. /[id number]/MODL
--- NOTE | 2018-06-28 15:34 | POSTANESTH ---
Post Anesthetic Evaluation Cardiovascular Status: Normal, Stable Respiratory Status: Normal, Stable Level of Consciousness/Mental Status: Can Participate in Eval Pain Control: Adequate, Prn Tx Ordered Nausea/Vomiting Control: Adequate, Prn Tx Ordered Complications Possibly Related to Anesthesia: None Noted
[2018-07-01] MEDS ORDERED: ESTRADIOL 0.025 MG PATCH TD SCH (09:15)
== END 2018-06-28 11:10 | disposition home or self-care (01) | DRG 417 ==
LOC: CED 19:34 → OBSVTOIN 21:30 → F3E 06-25 00:07
PROVIDERS: ADMIT Internal Medicine; ATTEND Internal Medicine
PROC: 0FT44ZZ Resection of Gallbladder, Percutaneous Endoscopic Approach (ICD-10-PCS; principal; 2018-06-27 17:00)
DX: K81.1 Chronic cholecystitis (principal); R74.0 Nonspecific elevation of levels of transaminase and lactic acid dehydrogenase [LDH]; K85.90 Acute pancreatitis without necrosis or infection, unspecified; D69.6 Thrombocytopenia, unspecified; I10 Essential (primary) hypertension; F41.8 Other specified anxiety disorders; Z98.84 Bariatric surgery status
CPT/HCPCS: 74177-PO; 80053-ER; 85025-QW-ER; 96374-ER; 96375-ER; 96376-ER; 99285-ER; A9537; J0690; J1100; J1170; J1650; J2060; J2250; J2270; J2405; J2550; J2704; J2805; J3010; J3475; J3480; Q9967